=== PATIENT | male | born 1980 | race Caucasian/White ===

== ENCOUNTER → 2024-09-29 | Outpatient (CLI) | payer BC ==
[~2024-09-29] MED LIST: ATACAND 16M16 MG/TAB PO; ATACAND4 MG; FLAGYL500 MG PO; IMURAN 50MG TAB50 MG PO; Iohexol 300 - 100 ML VIAL IV ONE; LEVAQUIN 5500 MG/TA1 PO; NS 100 ML IV SCH; PENTASA250 MG; PENTASA500 MG PO; PEPCID AC 10MG10 MG PO
== END ==
LOC: COL.RAD 13:14
DX: K62.89 Other specified diseases of anus and rectum (principal); K50.10 Crohn's disease of large intestine without complications; K61.0 Anal abscess
CPT/HCPCS: Q9967